=== PATIENT | male | born 1970 | race Caucasian/White ===

== ENCOUNTER 2023-04-16 07:06 | Day surgery (SDC) | payer BC ==
[~2023-04-16] VITALS: Ht 175.3 cm; Wt 82.6 kg
[2023-04-16] VITALS (7 sets, daily range): BP systolic 106–127; BP diastolic 64–81; PULSE 47–75; TEMP 97.1–97.9
[~2023-04-16 07:06] MED LIST: LR 1,000 ML IV SCH
[2023-04-16] MEDS ORDERED: ELIQUIS 2.5 PO (07:43)
[2023-04-16] MEDS ORDERED: FLONASE NASAL S16 GM NS (07:43)
[2023-04-16] MEDS ORDERED: Lidocaine PF 2% (20 MG/ML) 5 ML VIAL ONE (07:50)
[2023-04-16] MEDS ORDERED: fentaNYL 50 MCG/ML 2 ML VIAL ONE (07:50)
[2023-04-16] MEDS ORDERED: Glycopyrrolate 0.2 MG/ML 1 ML VIAL ONE ×2 (07:51→10:42)
[2023-04-16] MEDS ORDERED: dexAMETHasone 10 MG/ML VIAL ONE (07:51)
[2023-04-16] MEDS ORDERED: Ondansetron 4 MG/2 ML VIAL ONE (07:51)
[2023-04-16] MEDS ORDERED: NS 10 ML IV ONE (07:51)
[2023-04-16] MEDS ORDERED: Rocuronium 50 MG/5 ML Multi-Dose VIAL ONE ×2 (08:27→10:15)
[2023-04-16] MEDS ORDERED: NORCO 325 MG-51 TAB PO (08:50)
[2023-04-16] MEDS ORDERED: Morphine 4 MG/ML VIAL IV PRN ×2 (09:15→11:00)
[2023-04-16] MEDS ORDERED: HYDROmorphone 2 MG/1 ML VIAL IV PRN (09:15)
[2023-04-16] MEDS ORDERED: Meperidine 50 MG/ML 1 ML VIAL IV PRN (09:15)
[2023-04-16] MEDS ORDERED: Ondansetron 4 MG/2 ML VIAL IV PRN ×2 (09:15→11:00)
--- NOTE | 2023-04-16 09:46 | NUR ---
0723 Pt ambulatory to bay 7 with a steady gait, breathing even and unlabored. Pt is alert and oriented, accompanied by his . Consents reviewed and signed by pt. IV established. LR infusing via gravity at KVO. Call light in reach. Warm blankets provided.
[2023-04-16] MEDS ORDERED: Ketorolac 30 MG/ML VIAL ONE (09:59)
[2023-04-16] MEDS ORDERED: Topical Skin Adhesive 1 EACH (1 ML) TOP ONE (10:10)
[2023-04-16] MEDS ORDERED: Ibuprofen 600 MG TAB PO PRN (11:00)
--- NOTE | 2023-04-16 11:40 | NUR ---
PATIENT RETURNED TO ROOM 7 VIA CART, ALERT AND ORIENTED X3. DENIES PAIN, NAUSEA AND SHORTNESS OF BREATH. BREATHING REGULAR AND UNLABORED ON ROOM AIR. SKIN WARM AND DRY. SEE CHART FOR VITAL SIGNS. NURSE HANDOFF COMPLETED IN ROOM. 3 ABDOMINAL INCISIONS WITH SKIN GLUE CLOSURE. ALL INCISIONS CLEAN AND DRY WITH SKIN GLUE INTACT. ABDOMEN SOFT AND FLAT. WARM BLANKET PLACED OVER ABDOMEN. PATIENT HAD TOAST, WATER AND COFFEE. FOOD AND DRINK TOLERATED WELL. CALL LIGHT IN REACH. SPOUSE, NO, PRESENT IN ROOM
--- NOTE | 2023-04-16 12:30 | NUR ---
PATIENT AMBULATED TO THE RESTROOM WITH STEADY GAIT AND VOIDED WITHOUT DIFFICULTY.
--- NOTE | 2023-04-16 12:50 | NUR ---
PATIENT REPORTED 4/10 ABDOMINAL PAIN. DISCUSSED PAIN MANAGEMENT OPTIONS WITH PATIENT. SEE EMAR FOR MEDICATION GIVEN.
--- NOTE | 2023-04-16 13:17 | NUR ---
1315: DISCHARGE TEACHING COMPLETED WITH PRINTED EDUCATION AND INSTRUCTIONS SENT HOME WITH PATIENT. FOLLOW UP APPOINTMENT DATE, TIME AND LOCATION COMMUNICATED TO PATIENT. PATIENT AND SPOUSE VERBALIZED UNDERSTANDING OF TEACHING. PATIENT STATES PAIN IS TOLERABLE, DENIES ADDITIONAL INTERVENTIONS. IV REMOVED. GAUZE AND COBAN PLACED OVER SITE. 1317: PATIENT DISCHARGED HOME WITH TRANSPORT.
== END 2023-04-16 13:17 | disposition home or self-care (01) ==
LOC: SDCO 07:06
DX: K40.90 Unilateral inguinal hernia, without obstruction or gangrene, not specified as recurrent (principal); D68.2 Hereditary deficiency of other clotting factors; C44.90 Unspecified malignant neoplasm of skin, unspecified; F17.220 Nicotine dependence, chewing tobacco, uncomplicated; Z79.01 Long term (current) use of anticoagulants
CPT/HCPCS: C1781; J0690; J1100; J1170; J1885; J2405; J2704; J3010; J7120